=== PATIENT | female | born 1965 | race Caucasian/White ===

== ENCOUNTER 2019-08-17 15:47 | Emergency (ER) | payer MEDICARE ==
[~2019-08-17] VITALS: Ht 165.1 cm; Wt 86.4 kg
[2019-08-17 16:05] VITALS: Ht 165.1 cm; Wt 86.4 kg
[2019-08-17] MEDS ORDERED: NEURONTIN 300300 MG PO (16:06)
[2019-08-17] MEDS ORDERED: UNK BP MED (16:06)
[2019-08-17 16:30] LABS: HEMATOCRIT 32.7 % (36.0-48.0); HEMOGLOBIN 10.9 g/dL (12-16); MCHC 33.3 g/dL (31.0-37.0); MCV 107.9 fL (80.0-100.0); MEAN PLATELET VOLUME 10.2 fL (7.4-10.4); RBC 3.03 10x6/uL (4.00-5.40); RDW 13.6 % (11.5-14.5); WBC 3.1 10x3/uL (4.8-10.8)
[2019-08-17 16:33] LABS: PLATELET COUNT 38 10x3/uL (130-400)
[2019-08-17 16:36] LABS: CALC OSMOLALITY 273 mosm/kg (275-300); CARBON DIOXIDE 25.1 mmol/L (21.0-32.0); CHLORIDE - SERUM 105 mmol/L (98-107); CREATININE - SERUM 0.6 mg/dL (0.6-1.3); GLUCOSE 116 mg/dL (74-106); POTASSIUM - SERUM 3.8 mmol/L (3.5-5.1); SODIUM 138 mmol/L (136-145); UREA NITROGEN 5 mg/dL (7-18); eGFR NON AFRICAN AMERICAN > 90 mL/min (90-120)
[2019-08-17 16:42] LABS: ALBUMIN 2.4 g/dL (3.4-5.0); ALKALINE PHOSPHATASE 332 U/L (46-116); ALT (SGPT) 22 U/L (10-68); BILIRUBIN - TOTAL 1.56 mg/dL (0.2-1.3); PROTEIN - SERUM 8.3 g/dL (6.4-8.2)
[2019-08-17 17:02] LABS: PLATELET ESTIMATE DECREASED
[2019-08-17 17:12] LABS: BASOPHILS 1 % (0-2); EOSINOPHILS 1 % (0-7); LYMPHOCYTES 84 % (15-50); MONOCYTES 3 % (2-11); NEUTROPHILS 11 % (40-80); TARGET CELLS 1+
[2019-08-17 18:12] LABS: UDS - AMPHET NEGATIVE QUAL (NEGATIVE); UDS - BARB NEGATIVE QUAL (NEGATIVE); UDS - BENZO NEGATIVE QUAL (NEGATIVE); UDS - COCAINE NEGATIVE QUAL (NEGATIVE); UDS - OPIATE NEGATIVE QUAL (NEGATIVE); UDS - PCP NEGATIVE QUAL (NEGATIVE); UDS - THC NEGATIVE QUAL (NEGATIVE)
[2019-08-17 18:19] LABS: APPEARANCE CLEAR (CLEAR); BILIRUBIN NEGATIVE (NEGATIVE); COLOR STRAW (YELLOW); GLUCOSE NEGATIVE (NEGATIVE); KETONE NEGATIVE (NEGATIVE); NITRITE NEGATIVE (NEGATIVE); PROTEIN NEGATIVE (NEGATIVE); SPECIFIC GRAVITY 1.005 (1.005-1.020); UROBILINOGEN NORMAL (NORMAL)
[2019-08-17 19:30] VITALS: BP 180/80
== END 2019-08-17 19:30 | disposition home or self-care (01) ==
LOC: D.ER 15:47
PROVIDERS: Emergency Medicine
DX: F10.129 Alcohol abuse with intoxication, unspecified (principal); Y90.8 Blood alcohol level of 240 mg/100 ml or more; K70.30 Alcoholic cirrhosis of liver without ascites; B19.20 Unspecified viral hepatitis C without hepatic coma; D61.818 Other pancytopenia; R74.8 Abnormal levels of other serum enzymes; G62.9 Polyneuropathy, unspecified

== ENCOUNTER 2020-12-28 19:04 | Inpatient (IN) | payer MEDICARE ==
[~2020-12-28] VITALS: Ht 165.1 cm; Wt 95.6 kg
[~2020-12-28 19:04] MED LIST: NEURONTIN 300300 MG PO; UNK BP MED
[2020-12-28 19:58] LABS: HEMATOCRIT 31.5 % (36.0-48.0); HEMOGLOBIN 10.3 g/dL (12-16); LYMPHOCYTE ABS# 3.33 10x3/uL (1.18-3.74); MCH 36.4 pg (26.0-34.0); MCHC 32.7 g/dL (31.0-37.0); MCV 111.3 fL (80.0-100.0); MEAN PLATELET VOLUME 11.6 fL (7.4-10.4); NEUTROPHIL ABS# 0.82 10x3/uL (1.56-6.13); RBC 2.83 10x6/uL (4.00-5.40); WBC 5.5 10x3/uL (4.8-10.8)
[2020-12-28 19:59] LABS: PLATELET COUNT 44 10x3/uL (130-400)
[2020-12-28 20:00] VITALS: BP 122/90; BP 135/79
[2020-12-28 20:16] LABS: CALC OSMOLALITY 277 mosm/kg (275-300); CALCIUM 7.9 mg/dL (8.5-10.1); CARBON DIOXIDE 25.9 mmol/L (21.0-32.0); CHLORIDE - SERUM 107 mmol/L (98-107); CREATININE - SERUM 0.7 mg/dL (0.6-1.3); GLUCOSE 95 mg/dL (74-106); POTASSIUM - SERUM 3.2 mmol/L (3.5-5.1); SODIUM 141 mmol/L (136-145); UREA NITROGEN 5 mg/dL (7-18); eGFR NON AFRICAN AMERICAN > 90 mL/min (90-120)
[2020-12-28 20:22] LABS: ALBUMIN 2.3 g/dL (3.4-5.0); ALKALINE PHOSPHATASE 338 U/L (30-120); ALT (SGPT) 18 U/L (10-68); BILIRUBIN - TOTAL 3.96 mg/dL (0.2-1.3); PROTEIN - SERUM 7.3 g/dL (6.4-8.2)
[2020-12-28 20:24] LABS: BILIRUBIN NEGATIVE (NEGATIVE); KETONE NEGATIVE (NEGATIVE); NITRITE NEGATIVE (NEGATIVE); UROBILINOGEN NORMAL mg/dL (< 2)
[2020-12-28 20:30] LABS: BASOPHILS 3 % (0-2); EOSINOPHILS 12 % (0-7); HYPOCHROMASIA 1+; LYMPHOCYTES 63 % (15-50); MONOCYTES 2 % (2-11); NEUTROPHILS 20 % (40-80); PLATELET ESTIMATE DECREASED
[2020-12-28 20:49] LABS: APTT 41.4 SECONDS (22.8-39.4); INR 1.8 (0.85-1.17); PROTIME 19.4 SECONDS (11.6-15.0)
[2020-12-28 21:00] VITALS: BP 119/76; BP 119/89
[2020-12-28 22:00] VITALS: BP 150/99; BP 155/92
[2020-12-28 23:21] LABS: CKMB 2.2 U/L (0.0-3.6); CREATINE KINASE 179 UL (21-215)
[2020-12-28 23:35] LABS: TROPONIN-I 0.114 ng/mL (0.000-0.060)
[2020-12-29] VITALS (7 sets, daily range): BP systolic 117–171; BP diastolic 51–92; BMI 35.1
--- NOTE | 2020-12-29 01:45 | NUR ---
Platelet transfusion started to RAC 20g at rate of 50ml/hr. Consent and order verified. Second verification performed with Catherine Packer LPN. Will monitor patient for sign of transfusion reaction. See transfusion record flowsheet.
--- NOTE | 2020-12-29 02:05 | NUR ---
Transfusion rate increased to 150 ml/hr. No sign of reaction. See transfusion record flowsheet for details.
--- NOTE | 2020-12-29 03:35 | NUR ---
Transfusion completed at this time. Patient reports sudden onset of chills and headache begining approximately 5min ago. Denies shortness of breath, dizziness, nausea. Headache 9/10 pain. Findings reported to Valdez Dawkins APRN. Ordered to give morphine as ordered prn.
--- NOTE | 2020-12-29 03:45 | NUR ---
Assisted patient on bedpan. Void 350 clear yellow urine.
--- NOTE | 2020-12-29 05:00 | NUR ---
Patient resting comfortably. Denies pain or chills at this time.
--- NOTE | 2020-12-29 05:16 | NUR ---
EKG completed, sinus tachycardia rate 120, left axis deviation. Hardcopy placed in chart.
--- NOTE | 2020-12-29 07:04 | NUR ---
Shift report given to Rosa Maria CLEMENTE at bedside.
[2020-12-29 08:08] LABS: BASOPHILS 0.4 % (0-2); EOSINOPHILS 7.6 % (0-7); HEMATOCRIT 27.1 % (36.0-48.0); HEMOGLOBIN 8.8 g/dL (12-16); LYMPHOCYTES 11.4 % (15-50); MCH 36.1 pg (26.0-34.0); MCHC 32.5 g/dL (31.0-37.0); MCV 111.1 fL (80.0-100.0); MONOCYTES 6.5 % (2-11); NEUTROPHIL ABS# 1.95 10x3/uL (1.56-6.13); NEUTROPHILS 74.1 % (40-80); RBC 2.44 10x6/uL (4.00-5.40); RDW 14.3 % (11.5-14.5)
[2020-12-29 08:14] LABS: APTT 38.7 SECONDS (22.8-39.4); INR 1.95 (0.85-1.17); PROTIME 20.6 SECONDS (11.6-15.0)
[2020-12-29 08:20] LABS: WBC 2.6 10x3/uL (4.8-10.8)
[2020-12-29 08:22] LABS: PLATELET COUNT 30 10x3/uL (130-400)
[2020-12-29 08:23] LABS: ALBUMIN 2.1 g/dL (3.4-5.0); ALKALINE PHOSPHATASE 248 U/L (30-120); ALT (SGPT) 16 U/L (10-68); BILIRUBIN - TOTAL 3.63 mg/dL (0.2-1.3); CALC OSMOLALITY 290 mosm/kg (275-300); CALCIUM 7.7 mg/dL (8.5-10.1); CARBON DIOXIDE 25.3 mmol/L (21.0-32.0); CHLORIDE - SERUM 110 mmol/L (98-107); CKMB 1.4 U/L (0.0-3.6); CREATINE KINASE 134 UL (21-215); CREATININE - SERUM 0.6 mg/dL (0.6-1.3); GLUCOSE 90 mg/dL (74-106); PRO BNP 35 pg/mL (0-125); PROTEIN - SERUM 6.5 g/dL (6.4-8.2); SODIUM 148 mmol/L (136-145); UREA NITROGEN 5 mg/dL (7-18); eGFR NON AFRICAN AMERICAN > 90 mL/min (90-120)
[2020-12-29 08:24] LABS: MAGNESIUM - SERUM 1.1 mg/dL (1.8-2.4)
--- NOTE | 2020-12-29 08:25 | NUR ---
NURSE REPORTS LOW PLATELETS TO FLAVIO SANCHEZ AND PAGES DR DOYLE TO REPORT TO HIM.
[2020-12-29 08:26] LABS: TROPONIN-I 0.116 ng/mL (0.000-0.060)
[2020-12-29 08:27] LABS: POTASSIUM - SERUM 2.7 mmol/L (3.5-5.1)
--- NOTE | 2020-12-29 08:56 | NUR ---
DR DOYLE CALLS BACK AND SAYS HE IS OKAY WITH A 30 PLATELET COUNT AND WILL SEE HER LATER TODAY
[2020-12-29 09:40] LABS: % SATURATION 34 % (15-55); IRON 76 ug/dl (35-150); TOTAL IRON BIND CAPACITY 220 ug/dl (260-445); UNSAT IRON BIND CAPACITY 144 ug/dl (150-375)
[2020-12-29 13:00] LABS: CKMB 1.2 U/L (0.0-3.6); CREATINE KINASE 122 UL (21-215)
[2020-12-29 13:01] LABS: TROPONIN-I 0.122 ng/mL (0.000-0.060)
[2020-12-29] MEDS ORDERED: LISINOPRIL10 MG PO (14:45)
--- NOTE | 2020-12-29 15:19 | NUR ---
RATIONAL FOR SCDS EXPLAINED TO PT. PT STILL REFUSED SCDS.
[2020-12-29 19:15] LABS: CKMB 1.3 U/L (0.0-3.6); CREATINE KINASE 135 UL (21-215)
--- NOTE | 2020-12-29 19:20 | NUR ---
ASSESSMENT COMPLETE, PT A&O. RESPERATIONS EVEN ON RA, IV TO LEFT AC SL. SITE CLEAN AND DRY. PT DENIES PAIN OR NEEDS, BED LOW, CL IN REACH.
[2020-12-29 19:22] LABS: TROPONIN-I 0.126 ng/mL (0.000-0.060)
[2020-12-30] VITALS (18 sets, daily range): BP systolic 90–120; BP diastolic 58–78
--- NOTE | 2020-12-30 00:27 | NUR ---
PRESTRESSED CONCRETE LABORER AT BED SIDE, PT RESTING, NO S/S DISTRESS NOTED.
--- NOTE | 2020-12-30 02:46 | NUR ---
NOTIFIED BY MT THAT PT HAD AND ELEVATED T WAVE AND HEART RATE WAS ELEVATED TO 142, THIS NURSE ENTERED ROOM, PT WAS COMING OUT OF THE BR. PT WAS UNSTEADY ON HER FEET. ASSISTED PT BACK TO BED, PT ALSO SLURRING HER SPEECH AND HAS RIGHT SIDE FACIAL DROOPING. CALLED SERVICE BAR CASHIER AND CHARGE NURSE TO ROOM TO ASSIST, RAPID RESPONSE CALLED.
--- NOTE | 2020-12-30 03:23 | NUR ---
RESTING WITH EYES CLOSED, NO S/S DISTRESS NOTED.
--- NOTE | 2020-12-30 03:46 | NUR ---
NOTIFIED BY MT THAT PT HAD AND ELEVATED T WAVE AND HEART RATE WAS ELEVATED TO 142, THIS NURSE ENTERED ROOM, PT WAS COMING OUT OF THE BR. PT WAS UNSTEADY ON HER FEET. ASSISTED PT BACK TO BED, PT ALSO SLURRING HER SPEECH AND HAS RIGHT SIDE FACIAL DROOPING. CALLED DATA CAPTURE CLERK AND CHARGE NURSE TO ROOM TO ASSIST, RAPID RESPONSE CALLED.
--- NOTE | 2020-12-30 04:02 | NUR ---
GONE TO CT VIA BED.
[2020-12-30 04:11] LABS: BASOPHILS 0.5 % (0-2); EOSINOPHILS 6.8 % (0-7); IMMATURE GRANULOCYTES 0.3 % (0-5); LYMPHOCYTE ABS# 1.41 10x3/uL (1.18-3.74); MCH 36.3 pg (26.0-34.0); MCHC 32.4 g/dL (31.0-37.0); MCV 111.9 fL (80.0-100.0); MEAN PLATELET VOLUME 12.4 fL (7.4-10.4); MONOCYTES 12.9 % (2-11); NEUTROPHIL ABS# 1.62 10x3/uL (1.56-6.13); NEUTROPHILS 42.5 % (40-80); RDW 14.3 % (11.5-14.5)
[2020-12-30 04:12] LABS: HEMOGLOBIN 10.7 g/dL (12-16); RBC 2.95 10x6/uL (4.00-5.40); WBC 3.8 10x3/uL (4.8-10.8)
[2020-12-30 04:13] LABS: PLATELET COUNT 49 10x3/uL (130-400)
--- NOTE | 2020-12-30 04:20 | NUR ---
GONE TO ER VIA BED. ER NURSES AT BED SIDE TO ASSESS PT.
[2020-12-30 04:21] LABS: MAGNESIUM - SERUM 1.1 mg/dL (1.8-2.4); PHOSPHOROUS 3.4 mg/dL (2.5-4.9)
--- NOTE | 2020-12-30 04:42 | NUR ---
PTS HR BETWEEN 160 AND UP TO 200, PT IN SVT, ADENOSIN 12 MG GIVEN IVP BY ER NURSE.
--- NOTE | 2020-12-30 04:50 | NUR ---
PT HR STILL ELEVATED AT 180, A SECOND DOSE OF ADENOSIN 12 MG GIVEN IVP BY ER NURSE.
--- NOTE | 2020-12-30 05:00 | NUR ---
PT HR STILL ELEVATED, 150-170, ER PHYSICIAN AT BED SIDE ORDERS GIVEN AND CARRIED OUT BY ER NURSES, CARDIZEM 10 MG IVP GIVEN, ATIVAN 1 MG GIVEN FOR TREMORS OR SEIZURE ACT ACTIVITY, STARTED ON CARDIZEM DRIP AT 10 CC/HR.
--- NOTE | 2020-12-30 05:28 | NUR ---
NOTIFIED ZORAN ALEJO APN OF PTS CHANGE IN CONDITION.
--- NOTE | 2020-12-30 08:23 | NUR ---
CONSULT CALLED TO CARDIOLOGY AND ORDERS GIVEN.
--- NOTE | 2020-12-30 08:45 | NUR ---
CONSULT CALLED TO DR. PITTS AND ORDERS NOTED.
[2020-12-30 10:12] LABS: HEPATITIS C ANTIBODY >11.0 S/CO RAT (0.0-0.9)
--- NOTE | 2020-12-30 11:07 | NUR ---
PATIENT ABLE TO GO TO MRI WILL TURN CARDIZEM OFF FOR THAT PERIOD OF TIME PER IVAN JIMENEZ APN FOR CARDIOLOGY AND WILL GIVE LOPRESSOR IVP FOR THIS. DR. MENDEZ IN AND SAID DO NO GIVE PLATELETS.
--- NOTE | 2020-12-30 19:00 | NUR ---
BEDSIDE REPORT COMPLETED WITH OFF GOING RN. PT IS LAYING IN BED WITH EYES CLOSED AT THIS TIME. SHIFT ASSESSMENT COMPLETED. NO S/S OF DISTRESS. PT DENIES NEEDS AT THIS TIME. WILL CONTINUE TO MONITOR.
[2020-12-31] VITALS (16 sets, daily range): BP systolic 93–143; BP diastolic 61–89; Ht 165.1 cm; Wt 95.6 kg
[2020-12-31 04:44] LABS: BASOPHILS 0.3 % (0-2); EOSINOPHILS 1.5 % (0-7); HEMATOCRIT 31.1 % (36.0-48.0); HEMOGLOBIN 9.8 g/dL (12-16); IMMATURE GRANULOCYTES 0.3 % (0-5); LYMPHOCYTE ABS# 1.11 10x3/uL (1.18-3.74); LYMPHOCYTES 28.2 % (15-50); MCH 35.8 pg (26.0-34.0); MCHC 31.5 g/dL (31.0-37.0); MCV 113.5 fL (80.0-100.0); MEAN PLATELET VOLUME 12.1 fL (7.4-10.4); MONOCYTES 21.6 % (2-11); NEUTROPHIL ABS# 1.89 10x3/uL (1.56-6.13); NEUTROPHILS 48.1 % (40-80); PLATELET COUNT 50 10x3/uL (130-400); RBC 2.74 10x6/uL (4.00-5.40); RDW 14.7 % (11.5-14.5); WBC 3.9 10x3/uL (4.8-10.8)
[2020-12-31 04:46] LABS: PLATELET ESTIMATE DECREASED
[2020-12-31 05:03] LABS: MAGNESIUM - SERUM 1.2 mg/dL (1.8-2.4)
[2020-12-31 05:19] LABS: PHOSPHOROUS 2.1 mg/dL (2.5-4.9)
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
[2020-12-31 09:55] LABS: ALBUMIN 2.3 g/dL (3.4-5.0); ALKALINE PHOSPHATASE 184 U/L (30-120); ALT (SGPT) 17 U/L (10-68); BILIRUBIN - TOTAL 5.07 mg/dL (0.2-1.3); CALC OSMOLALITY 280 mosm/kg (275-300); CARBON DIOXIDE 24.4 mmol/L (21.0-32.0); CHLORIDE - SERUM 105 mmol/L (98-107); CREATININE - SERUM 0.8 mg/dL (0.6-1.3); GLUCOSE 110 mg/dL (74-106); POTASSIUM - SERUM 3.1 mmol/L (3.5-5.1); PROTEIN - SERUM 7.1 g/dL (6.4-8.2); SODIUM 141 mmol/L (136-145); UREA NITROGEN 11 mg/dL (7-18); eGFR NON AFRICAN AMERICAN 79 mL/min (90-120)
--- NOTE | 2020-12-31 14:11 | NUR ---
ROSA W/ MARY HERE TO TALK TO MR. MOELLER REGARDING POA STATUS FOR PT.
--- NOTE | 2020-12-31 14:41 | NUR ---
REPORT RECEIVED FROM RAPHAEL IN CCL.
--- NOTE | 2020-12-31 14:51 | EC ---
PATIENT:KAYLA ONTIVEROS DATE OF SERVICE: 12/28/20 SEX: F MEDICAL RECORD: [id number] DATE OF : 65 LOCATION:[facility] AGE OF PATIENT: 55 ADMISSION DATE: 12/28/20 REFERRING PHYSICIAN: INTERPRETING PHYSICIAN: JAYLEN VICTORIA MD ECHOCARDIOGRAM REPORT ECHO CHARGES 4 ECHO COMPLETE Date: 12/30/20 CLINICAL DIAGNOSIS: TIA VS CVA ECHOCARDIOGRAPHIC MEASUREMENTS (adult normal given) AC root (d.<3.7cm) 2.4 cm LV Septum d (<1.2 cm> 1.7 cm Valve Excursion 1.5 cm LV Septum (systole) 1.8 cm Left Atria (s.<4.0cm> 3.8 cm LVPW d(<1.2cm) 0.5 cm RV (d.<2.3cm) 4.2 cm LVPW (sytole) 1.0 cm LV diastole(<5.6CM) 3.8 cm MV E-F(>70mm/sec) cm LV systole 2.7 cm LVOT Diameter 1.6 cm MV exc.(>10mm) 1.4 cm Est.ejection fraction (50-75%) % DOPPLER: LVIT cm/sec A 27 cm/sec E 64 cm/sec LA cm/sec RVSP 53 mmHg LVOT 91 cm/sec AOP1/2T m/s Asc. Ao 235 cm/sec RVOT 62 cm/sec RA cm/sec PA 80 cm/sec AV Gradient Peak 22.2 mmHg AV Mean 14.9 mmHg AV Area 0.6 cm MV Gradient Peak 4.4 mmHg MV Mean 2.3 mmHg MV Area cm COMMENTS: Instrumentation Engineer: Amandeep GUTIERREZ Non Clinical Advisor: 5 Dr. Victoria TAPE# Pericardial Effusion N DATE OF SERVICE: CLINICAL DIAGNOSIS: TIA. INTERPRETATION: Normal left ventricular chamber size and contractile function with ejection fraction of 55%. Right ventricle, contrast bubble study negative for evidence of intraatrial communication. FINDINGS: Left atrial chamber appears normal. Right atrial chamber is dilated. Right ventricular chamber is dilated with reduced systolic contractile ECHOCARDIOGRAM REPORT [id number] KAYLA ONTIVEROS function. Mild thickening and calcification of the aortic valve with good cusp excursion. Trivial aortic regurgitation. Aortic sclerosis. No stenosis. Mitral valve appears normal. No mitral regurgitation. Tricuspid valve appears normal. Moderate to severe tricuspid regurgitation. Tricuspid velocity 3.2 meters per second. Estimated PA pressures of 52 mmHg consistent with moderate pulmonary hypertension. Pulmonic valve not well visualized. No pulmonary insufficiency. No pericardial effusion visualized. IMPRESSION: 1. Normal left ventricular chamber size and contractile function with an ejection fraction of 55%. 2. Right atrial and right ventricular chamber dilatation. Reduced RV contractile systolic dysfunction. 3. Moderate to severe tricuspid regurgitation. Estimated PA pressure of 52 mmHg consistent with moderate pulmonary hypertension. 4. Contrast bubble study negative for evidence for interatrial communication. TRANSINT:[id number] Voice Confirmation ID: [id number] DOCUMENT ID: [id number] JAYLEN VICTORIA MD at 1451 CC: [id number] DICTATION DATE: 12/30/20 1500 STRIKER OFF: 12/30/20 1655 [facility] [address] [place] [address]
--- NOTE | 2020-12-31 14:56 | MORECARE ---
CASE MANAGEMENT DISCHARGE SUMMARY PATIENT: KAYLA ONTIVEROS UNIT: [id number] ADM DATE: 12/28/20 AGE: 55 : 65 SEX: F ROOM/BED: [facility] AUTHOR: CARLOS,DOC PHYSICIAN: REFERRING PHYSICIAN: CRISTHIAN OZUNA MD DATE OF SERVICE: 12/31/20 Case Management Discharge Planning Summary DCP REVIEW SUMMARY ANTICIPATED D/C DATE: EXPECTED LOS : CASE STATUS: DCP Initiated INITIAL REVIEW: 12/31/2020 INITIAL REVIEWER: Lesvia Scherer FINAL DISCHARGE DISPOSITION: : FINAL REVIEWER: FINAL REVIEW DATE: DCP Focus Questions & Answers QUESTION: ANSWER : PATIENT: KAYLA ONTIVEROS ENCOUNTER: [id number] MEDICAL RECORD#: [id number] ADMISSION DATE: 12/28/2020 DISCHARGE DATE: ATTENDING MD: CRISTHIAN CELESTIN : AGE: 55 MARITAL STATUS: S DC PLAN ID: [id number] FACILITY: [facility] PRINTED ON: 12/31/20 14:56 CT All edits/amendments must be made on the electronic document DICTATION DATE: 12/31/201455 STATISTICAL METHODS TEACHER: DM 12/31/20 145 RPT#: [id number] DC DATE: STATUS: ADM IN [facility] [address] [place] [address] END OF REPORT
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
--- NOTE | 2020-12-31 15:54 | NUR ---
ARRIVES TO UNIT PER WC FROM ICU, VITALS TAKEN, LFA SL, VISITOR PRESENT
--- NOTE | 2021-01-01 00:52 | NUR ---
PT RESTING IN BED WATCHING TV. NO COMPLAINTS OF PAIN NOR DISCOMFORT NOTED AT THIS TIME. PT IS CONFUSED. BED IN LOW POSITION WITH CALL LIGHT IN REACH.
[2021-01-01 04:00] VITALS: BP 140/79
[2021-01-01 06:27] LABS: ALBUMIN 2.4 g/dL (3.4-5.0); ALKALINE PHOSPHATASE 191 U/L (30-120); ALT (SGPT) 17 U/L (10-68); BILIRUBIN - TOTAL 5.23 mg/dL (0.2-1.3); CALC OSMOLALITY 271 mosm/kg (275-300); CALCIUM 8.2 mg/dL (8.5-10.1); CARBON DIOXIDE 24.1 mmol/L (21.0-32.0); CHLORIDE - SERUM 103 mmol/L (98-107); CREATININE - SERUM 0.7 mg/dL (0.6-1.3); GLUCOSE 91 mg/dL (74-106); MAGNESIUM - SERUM 1.1 mg/dL (1.8-2.4); PHOSPHOROUS 1.8 mg/dL (2.5-4.9); POTASSIUM - SERUM 3.1 mmol/L (3.5-5.1); PROTEIN - SERUM 7.3 g/dL (6.4-8.2); SODIUM 137 mmol/L (136-145); UREA NITROGEN 8 mg/dL (7-18); eGFR NON AFRICAN AMERICAN > 90 mL/min (90-120)
[2021-01-01 06:35] LABS: HEMATOCRIT 31.4 % (36.0-48.0); HEMOGLOBIN 10.1 g/dL (12-16); LYMPHOCYTE ABS# 1.39 10x3/uL (1.18-3.74); MCH 36.1 pg (26.0-34.0); MCHC 32.2 g/dL (31.0-37.0); MCV 112.1 fL (80.0-100.0); MEAN PLATELET VOLUME 12.3 fL (7.4-10.4); NEUTROPHIL ABS# 1.83 10x3/uL (1.56-6.13); PLATELET COUNT 59 10x3/uL (130-400); RDW 14.9 % (11.5-14.5); WBC 4.4 10x3/uL (4.8-10.8)
--- NOTE | 2021-01-01 07:00 | NUR ---
RECEIVED BEDSIDE REPORT ON PATIENT AND ASSUMED CARE. PATIENT AWAKE AND ALERT, CONFUSED TO TIME (STATES 2020) REORIENTED TO CORRECT YEAR, IV 20 GA TO LEFT FA NSL WITH SWAB CAP IN PLACE. BBS - CLEAR AND EQUAL ON RA. HEAD TO TOE ASSESSMENT COMPLETED.
[2021-01-01 07:07] LABS: ANISOCYTOSIS OCC; EOSINOPHILS 4 % (0-7); LYMPHOCYTES 25 % (15-50); MONOCYTES 3 % (2-11); NEUTROPHILS 66 % (40-80); PLATELET ESTIMATE DECREASED; SCHISTOCYTES OCC
--- NOTE | 2021-01-01 07:44 | NUR ---
ELECTROLYTE REPLACEMENT PER PROTOCOL.
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
--- NOTE | 2021-01-01 08:43 | NUR ---
PER Jovani SOLARES APRN PATIENT GIVEN ADDITIONAL DOSE OF POTASSIUM PER ORDER. MORNING MEDS PER NOV. PATIENT SITTING UP EATING BREAKFAST, NO NEEDS AT THIS TIME.
[2021-01-01 08:48] VITALS: BP 133/77
--- NOTE | 2021-01-01 09:38 | NUR ---
PATINET UP TO BATHROOM FOR BM.
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
[2021-01-01 12:46] VITALS: BP 144/83; BP 170/71
--- NOTE | 2021-01-01 13:43 | NUR ---
PATIENT SITTING UP IN BEDSIDE CHAIR, ASSISTED TO BATHROOM.
--- NOTE | 2021-01-01 14:59 | NUR ---
PATIENT UP WALKING HALLWAY WITH .
--- NOTE | 2021-01-01 15:15 | NUR ---
PATIENT SITTING UP IN BEDSIDE CHAIR, WANTING TO LEAVE TO SMOKE. STATES SMOKES 1-2 CIGARETTES PER DAY. 7 MG NICOTINE PATCH ORDERED AND PLACED ON RIGHT UPPER ARM.
--- NOTE | 2021-01-01 15:56 | NUR ---
PATIENT UP TO BATHROOM, SIGNIFICANT OTHER IN ROOM.
[2021-01-01 17:11] VITALS: BP 148/73
--- NOTE | 2021-01-01 17:28 | NUR ---
PATIENT UP OUT OF BED, NOT USING CALL LIGHT, REDIRECTED BACK TO BED. ALARMS ON.
[2021-01-01 20:23] VITALS: BP 139/83
[2021-01-02] VITALS (7 sets, daily range): BP systolic 126–169; BP diastolic 63–96
--- NOTE | 2021-01-02 02:02 | NUR ---
PT HAS BEEN WALKING AROUND ROOM THROUGHOUT THE NIGHT. PT IS VERY CONFUSED. PT THINKS THAT SOMEONE IS IN THE ROOM WITH HER. ABLE TO MAKE WANTS AND NEEDS KNOWN. PT CURRENTLY SITTING IN CHAIR WITH ALARM (ONE ALSO IN THE BED) IN PLACE. CALL MORFIN LIGHT IN REACH.
[2021-01-02 05:42] LABS: BASOPHILS 0.5 % (0-2); EOSINOPHILS 5.6 % (0-7); HEMATOCRIT 30.7 % (36.0-48.0); HEMOGLOBIN 9.9 g/dL (12-16); IMMATURE GRANULOCYTES 0.5 % (0-5); LYMPHOCYTE ABS# 1.38 10x3/uL (1.18-3.74); LYMPHOCYTES 34.8 % (15-50); MCH 35.6 pg (26.0-34.0); MCHC 32.2 g/dL (31.0-37.0); MCV 110.4 fL (80.0-100.0); MEAN PLATELET VOLUME 11.5 fL (7.4-10.4); MONOCYTES 17.7 % (2-11); NEUTROPHIL ABS# 1.62 10x3/uL (1.56-6.13); NEUTROPHILS 40.9 % (40-80); PLATELET COUNT 53 10x3/uL (130-400); RBC 2.78 10x6/uL (4.00-5.40); RDW 15.1 % (11.5-14.5)
[2021-01-02 05:49] LABS: PLATELET ESTIMATE DECREASED
[2021-01-02 05:54] LABS: ALBUMIN 2.3 g/dL (3.4-5.0); ALKALINE PHOSPHATASE 195 U/L (30-120); ALT (SGPT) 18 U/L (10-68); BILIRUBIN - TOTAL 5.19 mg/dL (0.2-1.3); CALC OSMOLALITY 271 mosm/kg (275-300); CALCIUM 8.5 mg/dL (8.5-10.1); CARBON DIOXIDE 23.3 mmol/L (21.0-32.0); CHLORIDE - SERUM 105 mmol/L (98-107); CREATININE - SERUM 0.7 mg/dL (0.6-1.3); GLUCOSE 103 mg/dL (74-106); MAGNESIUM - SERUM 1.4 mg/dL (1.8-2.4); PHOSPHOROUS 2.1 mg/dL (2.5-4.9); POTASSIUM - SERUM 3.7 mmol/L (3.5-5.1); SODIUM 137 mmol/L (136-145); UREA NITROGEN 8 mg/dL (7-18); eGFR NON AFRICAN AMERICAN > 90 mL/min (90-120)
[2021-01-02 09:26] LABS: INR 1.96 (0.85-1.17); PROTIME 20.7 SECONDS (11.6-15.0)
--- NOTE | 2021-01-02 09:34 | NUR ---
FOUND OOB, BED ALARM ON. SHE REPORTS SHE IS UP BECAUSE SHE IS GETTING DRESSED TO GO HOME AND SAYS THE DISCHARGED HER. REORIENTED HER TO SITUATION. BACK TO BED SAFELY. REINFORCED TO CALL FOR ASSISTANCE. FALL ALARM ON. CALL LIGHT W/IN REACH.
--- NOTE | 2021-01-02 14:28 | NUR ---
PATIENT IS GOING INTO AN ENCLOSURE BED SECONDARY TO HER CONFUSION. AT THIS TIME SHE DOES NOT APPEAR TO BE STABLE ENOUGH TO FOLLOW INSTRUCTION AND PARTICIPATE IN 3 HOURS OF THERAPY. WE WILL CONTINUE TO FOLLOW HER. THANK YOU FOR THIS REFERRAL. EVARISTO MATHIAS RN CLINICAL LIAISON, INPATIENT REHAB.
--- NOTE | 2021-01-02 14:42 | NUR ---
CONSTANTLY GETTING UP OUT OF CHAIR, INSISTING SHE HAS TO GO TO COURT TOMORROW. CANNOT BE REORIENTED AND CANNOT FOLLOW DIRECTIONS. DR. MENDEZ CAME BY AT THAT TIME AND ORDERED MAIKOL BED FOR SAFETY AND TO PREVENT ELOPEMENT.
--- NOTE | 2021-01-02 14:43 | NUR ---
ATTEMPTED TO CALL MR. MOELLER TO INFORM HIM OF HER BEING PLACED IN MAIKOL BED, BUT NUMBER DISCONNECTED.
--- NOTE | 2021-01-02 22:41 | NUR ---
PT IS RESTING IN MAIKOL BED. PT HAS BEEN RELEASED TO USE THE RESTROOM. NO COMPLAINTS OF PAIN NOR DISCOMFORT NOTED. PT IS STILL CONFUSED. ABLE TO MAKE WANTS AND NEEDS KNOWN TO STAFF. BED IN LOWEST POSITION WITH CALL LIGHT IN REACH.
[2021-01-03 01:19] VITALS: BP 138/84
[2021-01-03 04:00] VITALS: BP 140/72
[2021-01-03 05:08] LABS: BASOPHILS 0.6 % (0-2); EOSINOPHILS 5.1 % (0-7); HEMATOCRIT 33.2 % (36.0-48.0); HEMOGLOBIN 10.4 g/dL (12-16); LYMPHOCYTE ABS# 1.21 10x3/uL (1.18-3.74); LYMPHOCYTES 34.2 % (15-50); MCH 35.3 pg (26.0-34.0); MCHC 31.3 g/dL (31.0-37.0); MEAN PLATELET VOLUME 11.9 fL (7.4-10.4); MONOCYTES 16.7 % (2-11); NEUTROPHIL ABS# 1.54 10x3/uL (1.56-6.13); NEUTROPHILS 43.4 % (40-80); PLATELET COUNT 61 10x3/uL (130-400); RBC 2.95 10x6/uL (4.00-5.40); RDW 15.3 % (11.5-14.5); WBC 3.5 10x3/uL (4.8-10.8)
[2021-01-03 05:11] LABS: MCV 112.5 fL (80.0-100.0)
[2021-01-03 06:00] LABS: ALBUMIN 2.5 g/dL (3.4-5.0); ALKALINE PHOSPHATASE 220 U/L (30-120); BILIRUBIN - TOTAL 5.84 mg/dL (0.2-1.3); CALC OSMOLALITY 276 mosm/kg (275-300); CALCIUM 8.6 mg/dL (8.5-10.1); CARBON DIOXIDE 22.5 mmol/L (21.0-32.0); CHLORIDE - SERUM 106 mmol/L (98-107); CREATININE - SERUM 0.7 mg/dL (0.6-1.3); GLUCOSE 96 mg/dL (74-106); MAGNESIUM - SERUM 1.5 mg/dL (1.8-2.4); PROTEIN - SERUM 7.5 g/dL (6.4-8.2); SODIUM 139 mmol/L (136-145); UREA NITROGEN 9 mg/dL (7-18); eGFR NON AFRICAN AMERICAN > 90 mL/min (90-120)
[2021-01-03 06:18] LABS: ALT (SGPT) 27 U/L (10-68); PHOSPHOROUS 3.6 mg/dL (2.5-4.9); POTASSIUM - SERUM 3.1 mmol/L (3.5-5.1)
--- NOTE | 2021-01-03 08:00 | NUR ---
ALERT AND ORIENTED TO NAME ONLY BED OPENED FOR BREAKFAST BUT REFUSED TO EAT. GOOD ROM OF EXT. AND DENIES ANY PAIN OR DISCOMFORT WITH CALL LIGHT IN REACH.
[2021-01-03 08:16] VITALS: BP 162/83
--- NOTE | 2021-01-03 10:00 | NUR ---
AMBULATING WITH PHYSICAL THERAPY WITH R/WALKER WITH SEADY GAIT. NO CHANGE IN COGNITION NOTED.
[2021-01-03 12:01] VITALS: BP 150/99
--- NOTE | 2021-01-03 14:00 | NUR ---
FAMILY FRIEND HERE WITH MAIKOL BED OPENED AND AMBULATING WITH R/WALKER IN HALLWAY W/O ANY CHANGE IN COGNITION.
--- NOTE | 2021-01-03 16:00 | NUR ---
NO CHANGE IN CONDITION. RESTING WITH EYES CLOSED WITH RESP EVEN AND UNLABORED.
[2021-01-03 16:33] VITALS: BP 148/83
--- NOTE | 2021-01-03 16:52 | NUR ---
MAIKOL BED OPEN FOR LUNCH AND CONTINUES TO STATE SHE IS NOT HUNGRY. WATER CONSUMED WITH 50% MEAL CONSUMED.
--- NOTE | 2021-01-03 19:06 | NUR ---
PATIENT RESTING IN BED WITH NO S/S OF DISTRESS. MAIKOL BED IN USE. PATIENT IS CONFUSED AND DENIES NEEDS AT THIS TIME. BED IN LOWEST POSITION, CALL LIGHT IN REACH. ENCOURAGED PATIENT TO CALL WITH NEEDS.
--- NOTE | 2021-01-03 20:02 | NUR ---
ADMINISTERED MEDS PER ORDERS. PATIENT SCOTT WELL. ENCOURAGED TO CALL WITH NEEDS.
[2021-01-03 20:21] VITALS: BP 156/75
[2021-01-04 04:30] VITALS: BP 151/90
[2021-01-04 05:56] LABS: BASOPHILS 0.9 % (0-2); EOSINOPHILS 8.5 % (0-7); HEMATOCRIT 31.7 % (36.0-48.0); HEMOGLOBIN 10.2 g/dL (12-16); LYMPHOCYTE ABS# 1.01 10x3/uL (1.18-3.74); MCH 35.8 pg (26.0-34.0); MCHC 32.2 g/dL (31.0-37.0); MCV 111.2 fL (80.0-100.0); MEAN PLATELET VOLUME 12.4 fL (7.4-10.4); MONOCYTES 22.8 % (2-11); NEUTROPHIL ABS# 1.13 10x3/uL (1.56-6.13); NEUTROPHILS 35.8 % (40-80); PLATELET COUNT 63 10x3/uL (130-400); RBC 2.85 10x6/uL (4.00-5.40); RDW 15.3 % (11.5-14.5); WBC 3.2 10x3/uL (4.8-10.8)
[2021-01-04 05:59] LABS: ALBUMIN 2.3 g/dL (3.4-5.0); ALKALINE PHOSPHATASE 176 U/L (30-120); ALT (SGPT) 27 U/L (10-68); BILIRUBIN - TOTAL 5.66 mg/dL (0.2-1.3); CALC OSMOLALITY 280 mosm/kg (275-300); CALCIUM 8.3 mg/dL (8.5-10.1); CARBON DIOXIDE 21.7 mmol/L (21.0-32.0); CHLORIDE - SERUM 108 mmol/L (98-107); CREATININE - SERUM 0.6 mg/dL (0.6-1.3); GLUCOSE 91 mg/dL (74-106); POTASSIUM - SERUM 3.2 mmol/L (3.5-5.1); SODIUM 142 mmol/L (136-145); UREA NITROGEN 8 mg/dL (7-18); eGFR NON AFRICAN AMERICAN > 90 mL/min (90-120)
--- NOTE | 2021-01-04 08:00 | NUR ---
ALERT AND ORIENTED TO SELF WITH HALLUCINATIONS NOTED. GOOD ROM OF EXT. X4. MAIKOL BED OPEN WITH SET UP ASSIST WITH MEALS BUT REFUSES BREAKFAST THIS AM. STATING SHE WASN'T HUNGRY. SBA TO BATHROOM WITH STEADY GAIT.
[2021-01-04 08:20] LABS: INR 2.21 (0.85-1.17); PROTIME 22.8 SECONDS (11.6-15.0)
[2021-01-04 09:34] VITALS: BP 147/97
--- NOTE | 2021-01-04 10:00 | NUR ---
GOOD ROM OF EXT. X4 WITH SBA TO BATHROOM. RESP EVEN AND UNLABORED W/O DYSPNEA.
--- NOTE | 2021-01-04 12:00 | NUR ---
AMBULATING WITH THERAPY WITH CANE WITH SBA. INCREASED STRENGTH AND STABLILITY NOTED. NO CHANGE NOTED IN COGNITION. SET UP ASSSITED WITH MEAL AND CONSUMED 75%. WITH MAIKOL BED OPENWHILE EATING.
[2021-01-04 13:37] VITALS: BP 156/87
--- NOTE | 2021-01-04 14:00 | NUR ---
HERE WITH MAIKOL BED OPEN AT THIS TIME. INSTRUCTED TO NOTIFY PRIOR TO LEAVING AND VERBLAIZED UNDERSTANDING.
--- NOTE | 2021-01-04 16:00 | NUR ---
HERE AT BEDSIDE WITH MAIKOL BED OPEN. NO FLIGHT ATTEMPT AT THIS TIME. PLEASANT AND COOPERATIVE WITH REQUESTS. UP WITH SBA TO BATHROOM.
[2021-01-04 17:41] VITALS: BP 138/72
--- NOTE | 2021-01-04 18:00 | NUR ---
MAIKOL BED OPEN WITH PATIENT REQUIRES SET UP ASSSIT ONLY FOR MEALS. ASSISTED BACK TO MAIKOL POST MEALS AND BATHROOM. STABLE AT THIS TIME AND COOPERATIVE.
--- NOTE | 2021-01-04 19:00 | NUR ---
BEDSIDE REPORT RECEIVED AND CARE OF PT ASSUMED. PT LYING IN LOW ZUÑIGA'S POSITION IN A MAIKOL ENCLOSURE BED WITH EYES CLOSED AND EASY RESPIRATIONS. IV TO LEFT HAND SALINE LOCKED. WILL MONITOR FOR NEEDS.
[2021-01-04 20:00] VITALS: BP 133/77
--- NOTE | 2021-01-04 20:42 | NUR ---
HS MEDICATIONS GIVEN. ASSISTED PT UP TO RESTROOM TO VOID AND OFFERED ICE WATER AND [place]. ALLOWED PT TO SIT UP ON SIDE OF BED FOR 20 MINUTES. POSITIONED BACK IN BED FOR COMFORT AND SECURED MAIKOL ENCLOSURE BED.
[2021-01-05] VITALS: BP 131/72
[2021-01-05 04:00] VITALS: BP 140/77
[2021-01-05 05:55] LABS: BASOPHILS 0.6 % (0-2); EOSINOPHILS 9.6 % (0-7); HEMATOCRIT 32.7 % (36.0-48.0); HEMOGLOBIN 10.3 g/dL (12-16); LYMPHOCYTE ABS# 1.04 10x3/uL (1.18-3.74); LYMPHOCYTES 32.2 % (15-50); MCH 35.6 pg (26.0-34.0); MCHC 31.5 g/dL (31.0-37.0); MCV 113.1 fL (80.0-100.0); MEAN PLATELET VOLUME 12.6 fL (7.4-10.4); MONOCYTES 23.5 % (2-11); NEUTROPHILS 34.1 % (40-80); PLATELET COUNT 63 10x3/uL (130-400); RBC 2.89 10x6/uL (4.00-5.40); RDW 15.6 % (11.5-14.5); WBC 3.2 10x3/uL (4.8-10.8)
[2021-01-05 05:57] LABS: PLATELET ESTIMATE DECREASED
[2021-01-05 06:05] LABS: INR 2.14 (0.85-1.17); PROTIME 22.2 SECONDS (11.6-15.0)
[2021-01-05 06:30] LABS: ALBUMIN 2.2 g/dL (3.4-5.0); ALKALINE PHOSPHATASE 229 U/L (30-120); ALT (SGPT) 26 U/L (10-68); BILIRUBIN - TOTAL 4.55 mg/dL (0.2-1.3); CALC OSMOLALITY 280 mosm/kg (275-300); CALCIUM 8.4 mg/dL (8.5-10.1); CARBON DIOXIDE 22.7 mmol/L (21.0-32.0); CHLORIDE - SERUM 110 mmol/L (98-107); CREATININE - SERUM 0.6 mg/dL (0.6-1.3); GLUCOSE 95 mg/dL (74-106); POTASSIUM - SERUM 3.2 mmol/L (3.5-5.1); PROTEIN - SERUM 6.7 g/dL (6.4-8.2); SODIUM 142 mmol/L (136-145); UREA NITROGEN 8 mg/dL (7-18); eGFR NON AFRICAN AMERICAN > 90 mL/min (90-120)
--- NOTE | 2021-01-05 08:00 | NUR ---
MAIKOL BED OPEN WITH PATIENT REQUIRING SET UP ASSSIT ONLY. PLEASANT AND COOPERATIVE AT THIS TIME. GOOD ROM OF EXT. AND ASSSITED TO BATHROOM WITH SBA.
[2021-01-05 08:20] VITALS: BP 127/65
--- NOTE | 2021-01-05 10:00 | NUR ---
PT AMBULATING IN HALLWAY WITH SBA WITH THERAPY. S/L TO LEFT HAND WITH GOOD ROM OF EXT X4. COOPERATIVE WITH CONTINUED CONFUSION WITH FREQUENT REDIRECTING.
--- NOTE | 2021-01-05 10:20 | NUR ---
Nutrition follow-up: Pt in mara bed with nurse at this time. Diet order: Regular PO intake ~50% of meals, snacks Labs reviewed Wt: 210# PO intake continues to be < 75% of meals Will coitnue to provide food choices and honor food preferences. Reassessment: 01/08/21
--- NOTE | 2021-01-05 12:00 | NUR ---
MAIKOL BED OPEN AND EATING LUNCH WITH SET UP ASSSIT. ASSISTED TO BATHROOM WITH SBA POST EATING. NO DYSPHASIA NOTED.
[2021-01-05 13:21] VITALS: BP 145/78
--- NOTE | 2021-01-05 14:00 | NUR ---
MAIKOL BED OPEN FOR MEDICATION ADMINISTRATION AND TOLERATED WELL. GOOD ROM OF EXT X4 AND COOPERATIVE WITH REQUESTS.
--- NOTE | 2021-01-05 15:32 | NUR ---
OT NOTE; PT COMPLETED SUPINE TO SIT WITH SPV. PT COMPLETED ADL MOB TO TOILET WITH SPV. PT COMPLETED TOILETING TASKS WITH SPV. PT COMPLETED ORAL CARE AT SINK WITH SPV. PT COMPLETED HAND HYGIENE AT SINK SPV. PT BACK IN MAIKOL BED...SECURED MAIKOL BED. [phone] THANK YOU,JENNI ROBERSON
--- NOTE | 2021-01-05 16:15 | NUR ---
MAIKOL BED OPEN FOR VISIT WITH . INSTRUCTED TO NOTIFY PRIOR TO LEAVING. ASSSITED PATIENT TO BATHROOM WITH SBA. NO CHANGE IN COGNITION.
[2021-01-05 17:14] VITALS: BP 136/75
--- NOTE | 2021-01-05 18:09 | NUR ---
MAIKOL BED OPEN WITH PATIENT EATING DINNER WITH AT BEDSIDE. REQUIRES SET UP ASSSIT ONLY. INSTRUCTED TO NOTIFY STAFF PRIOR TO LEAVING TO SECURE PATINET SAFETY IN BED WITH VERBALIZEING UNDERSTANDING.
--- NOTE | 2021-01-05 19:00 | NUR ---
BEDSIDE REPORT RECEIVED AND CARE OF PT ASSUMED. PT LYING IN LOW ZUÑIGA'S POSITION VISITING WITH SPOUSE. IV TO LEFT HAND SALINE LOCKED. WILL MONITOR FOR NEEDS. MAIKOL ENCLOSURE BED IN USE FOR SAFETY.
[2021-01-05 20:00] VITALS: BP 133/80
--- NOTE | 2021-01-05 20:46 | NUR ---
HS MEDICATIONS GIVEN TO INCLUDE MAG OX 400 MG PO PER THE ELECTOLYTE PROTOCOL.
--- NOTE | 2021-01-05 22:46 | NUR ---
ASSISTED UP TO USE RESTROOM. POSITIONED BACK IN MAIKOL BED FOR COMFORT.
[2021-01-06] VITALS: BP 123/64
[2021-01-06 04:00] VITALS: BP 145/72
[2021-01-06 07:35] LABS: BASOPHILS 1.4 % (0-2); EOSINOPHILS 12.6 % (0-7); HEMATOCRIT 32.1 % (36.0-48.0); HEMOGLOBIN 10.1 g/dL (12-16); LYMPHOCYTE ABS# 1.38 10x3/uL (1.18-3.74); LYMPHOCYTES 38.5 % (15-50); MCH 35.4 pg (26.0-34.0); MCHC 31.5 g/dL (31.0-37.0); MCV 112.6 fL (80.0-100.0); MEAN PLATELET VOLUME 11.6 fL (7.4-10.4); MONOCYTES 21.2 % (2-11); NEUTROPHIL ABS# 0.94 10x3/uL (1.56-6.13); NEUTROPHILS 26.3 % (40-80); PLATELET COUNT 56 10x3/uL (130-400); RBC 2.85 10x6/uL (4.00-5.40); RDW 15.5 % (11.5-14.5); WBC 3.6 10x3/uL (4.8-10.8)
[2021-01-06 07:42] LABS: ALBUMIN 2.1 g/dL (3.4-5.0); ALKALINE PHOSPHATASE 256 U/L (30-120); ALT (SGPT) 28 U/L (10-68); CALC OSMOLALITY 282 mosm/kg (275-300); CALCIUM 8.4 mg/dL (8.5-10.1); CARBON DIOXIDE 22.3 mmol/L (21.0-32.0); CHLORIDE - SERUM 110 mmol/L (98-107); CREATININE - SERUM 0.6 mg/dL (0.6-1.3); GLUCOSE 79 mg/dL (74-106); POTASSIUM - SERUM 3.2 mmol/L (3.5-5.1); PROTEIN - SERUM 6.4 g/dL (6.4-8.2); SODIUM 143 mmol/L (136-145); eGFR NON AFRICAN AMERICAN > 90 mL/min (90-120)
[2021-01-06 07:43] LABS: UREA NITROGEN 11 mg/dL (7-18)
--- NOTE | 2021-01-06 07:49 | NUR ---
RESTING IN BED WITH EYES OPEN, ALERT AND ORIENTED, MAIKOL BED PRESENT. IV LOCATED TO LEFT HAND CURRENTLY SL. NO CURRENT S/S OF DISTRESS AT THIS TIME, DENIES CURRENT NEEDS, WILL CONT TO MONITOR.
[2021-01-06 08:00] LABS: INR 2.14 (0.85-1.17); PROTIME 22.2 SECONDS (11.6-15.0)
[2021-01-06 09:37] VITALS: BP 141/80
[2021-01-06] MEDS ORDERED: NICODERM CQ1 EAC1 TRANSDERM (11:13)
[2021-01-06] MEDS ORDERED: ASPIRIN81 MG PO (11:13)
[2021-01-06] MEDS ORDERED: MULTI-DAY VITAM1 TAB PO (11:14)
[2021-01-06] MEDS ORDERED: MUPIROCIN22 GM NASAL (11:14)
[2021-01-06] MEDS ORDERED: TIAZAC/CARDIZEM CD PO (11:14)
[2021-01-06 12:04] VITALS: BP 148/88
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
--- NOTE | 2021-01-06 14:15 | NUR ---
DISCHARGE INSTRUCTIONS REVIEWED WITH PT AND SPOUSE. QUESTIONS ANSWERED. SALINE LOCK REMOVED. AWAITING RIDE HOME
--- NOTE | 2021-01-06 15:27 | NUR ---
OT NOTE: PT COMPLETED ADL MOB WITH SPV. PT COMPLETED TOILETING WITH SPV. PT COMPLETED HYGIENE WITH SPV. PT COMPLETED HAND HYGIENE WITH SPV AT SINK LEVEL. [phone] [place]
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
== END 2021-01-06 14:48 | disposition home health service (06) | DRG 808 ==
LOC: D.ER 19:04 → D.M2 22:08 → D.ICU 22:08 → D.EDHOLD 22:08 → D.M2 22:16 → D.ICU 12-30 06:04 → D.MS 12-31 15:42
PROVIDERS: Emergency Medicine; Family Medicine; Internal Medicine Hematology & Oncology; ADMIT Emergency Medicine; ATTEND Emergency Medicine
DX: D61.818 Other pancytopenia (principal); G93.41 Metabolic encephalopathy; I47.1 Supraventricular tachycardia; G45.9 Transient cerebral ischemic attack, unspecified; D53.9 Nutritional anemia, unspecified; E87.6 Hypokalemia; E83.42 Hypomagnesemia; K70.30 Alcoholic cirrhosis of liver without ascites; B19.20 Unspecified viral hepatitis C without hepatic coma; I10 Essential (primary) hypertension; V49.60XD Unspecified car occupant injured in collision with unspecified motor vehicles in traffic accident, subsequent encounter; Y90.8 Blood alcohol level of 240 mg/100 ml or more

== ENCOUNTER 2020-12-30 04:22 | Emergency (ER) | payer MEDICARE ==
[~2020-12-30] VITALS: Ht 165.1 cm; Wt 97.3 kg
[~2020-12-30 04:22] MED LIST changes: +LISINOPRIL10 MG PO
[2020-12-30 04:50] LABS: CALC OSMOLALITY 277 mosm/kg (275-300); CALCIUM 8.2 mg/dL (8.5-10.1); CHLORIDE - SERUM 103 mmol/L (98-107); CREATININE - SERUM 0.6 mg/dL (0.6-1.3); POTASSIUM - SERUM 3.4 mmol/L (3.5-5.1); SODIUM 140 mmol/L (136-145); UREA NITROGEN 5 mg/dL (7-18); eGFR NON AFRICAN AMERICAN > 90 mL/min (90-120)
[2020-12-30 04:51] LABS: INR 1.77 (0.85-1.17); PROTIME 19.2 SECONDS (11.6-15.0)
[2020-12-30 05:04] LABS: GLUCOSE 141 mg/dL (74-106)
[2020-12-30 05:08] VITALS: Ht 165.1 cm; Wt 97.3 kg
[2020-12-30 05:12] LABS: ALBUMIN 2.5 g/dL (3.4-5.0); ALKALINE PHOSPHATASE 271 U/L (30-120); ALT (SGPT) 19 U/L (10-68); BILIRUBIN - TOTAL 4.76 mg/dL (0.2-1.3); CKMB 1.3 U/L (0.0-3.6); CREATINE KINASE 128 UL (21-215); PROTEIN - SERUM 7.7 g/dL (6.4-8.2)
[2020-12-30 05:14] LABS: TROPONIN-I 0.152 ng/mL (0.000-0.060)
[2020-12-30 06:41] VITALS: BP 123/77
== END 2020-12-30 06:25 | disposition other institution (70) ==
LOC: D.ER 04:22
PROVIDERS: Family Medicine
DX: R41.82 Altered mental status, unspecified (principal); I47.1 Supraventricular tachycardia; I10 Essential (primary) hypertension; R53.1 Weakness

== ENCOUNTER 2021-01-22 11:47 | Emergency (ER) | payer MEDICARE ==
[~2021-01-22] VITALS: Ht 165.1 cm; Wt 81.8 kg
[~2021-01-22 11:47] MED LIST changes: +ASPIRIN81 MG PO; +MULTI-DAY VITAM1 TAB PO; +MUPIROCIN22 GM NASAL; +NICODERM CQ1 EAC1 TRANSDERM; +TIAZAC/CARDIZEM CD PO
[2021-01-22 11:54] VITALS: Ht 165.1 cm; Wt 81.8 kg
[2021-01-22 13:30] VITALS: BP 148/90
== END 2021-01-22 13:32 | disposition home or self-care (01) ==
LOC: D.ER 11:47
DX: S09.90XA Unspecified injury of head, initial encounter (principal); I10 Essential (primary) hypertension; W06.XXXA Fall from bed, initial encounter; Y93.9 Activity, unspecified; Y92.9 Unspecified place or not applicable

== ENCOUNTER 2021-02-04 18:53 | Inpatient (IN) | payer MEDICARE ==
[~2021-02-04] VITALS: Ht 165.1 cm; Wt 68.0 kg
[2021-02-04] MEDS ORDERED: TENORMIN25 MG PO (19:27)
[2021-02-04] MEDS ORDERED: GABAPENTIN300 MG PO (19:42)
--- NOTE | 2021-02-04 19:48 | NUR ---
PT WASTED URINE SAMPLE
[2021-02-04 19:59] LABS: HEMATOCRIT 33.1 % (36.0-48.0); HEMOGLOBIN 10.9 g/dL (12-16); LYMPHOCYTES 48.4 % (15-50); MCH 36.1 pg (26.0-34.0); MCHC 33.1 g/dL (31.0-37.0); MCV 109.3 fL (80.0-100.0); MONOCYTES 18.2 % (2-11); NEUTROPHILS 29.4 % (40-80); PLATELET COUNT 55 10x3/uL (130-400); RBC 3.02 10x6/uL (4.00-5.40); RDW 16.6 % (11.5-14.5)
[2021-02-04 20:07] LABS: CALC OSMOLALITY 280 mosm/kg (275-300); CALCIUM 8.2 mg/dL (8.5-10.1); CARBON DIOXIDE 25.2 mmol/L (21.0-32.0); CHLORIDE - SERUM 108 mmol/L (98-107); CREATININE - SERUM 0.7 mg/dL (0.6-1.3); GLUCOSE 97 mg/dL (74-106); POTASSIUM - SERUM 3.3 mmol/L (3.5-5.1); SODIUM 142 mmol/L (136-145); UREA NITROGEN 6 mg/dL (7-18); eGFR NON AFRICAN AMERICAN > 90 mL/min (90-120)
[2021-02-04 20:15] LABS: PLATELET ESTIMATE DECREASED
[2021-02-04 20:21] LABS: APTT 39.4 SECONDS (22.8-39.4); INR 1.68 (0.85-1.17); PROTIME 18.4 SECONDS (11.6-15.0)
[2021-02-04 20:28] LABS: ALBUMIN 2.1 g/dL (3.4-5.0); ALKALINE PHOSPHATASE 363 U/L (30-120); ALT (SGPT) 13 U/L (10-68); BILIRUBIN - TOTAL 2.54 mg/dL (0.2-1.3); C-REACTIVE PROTEIN 0.9 mg/dL (0.0-0.9); LIPASE 265 U/L (73-393); MAGNESIUM - SERUM 1.5 mg/dL (1.8-2.4); PRO BNP 37 pg/mL (0-125); PROTEIN - SERUM 7.4 g/dL (6.4-8.2); THYROID STIMULATING HORMONE 1.23 uIU/mL (0.36-3.74)
[2021-02-04 20:30] LABS: TROPONIN-I 0.099 ng/mL (0.000-0.060)
--- NOTE | 2021-02-04 20:35 | NUR ---
URINE TAKEN TO THE LAB
[2021-02-04 20:43] LABS: BILIRUBIN NEGATIVE (NEGATIVE); KETONE NEGATIVE (NEGATIVE); NITRITE NEGATIVE (NEGATIVE); UROBILINOGEN NORMAL mg/dL (< 2)
[2021-02-04 20:49] VITALS: BP 125/83
[2021-02-04 20:53] LABS: UDS - AMPHET NEGATIVE QUAL (NEGATIVE); UDS - BARB NEGATIVE QUAL (NEGATIVE); UDS - BENZO NEGATIVE QUAL (NEGATIVE); UDS - COCAINE NEGATIVE QUAL (NEGATIVE); UDS - OPIATE NEGATIVE QUAL (NEGATIVE); UDS - PCP NEGATIVE QUAL (NEGATIVE); UDS - THC NEGATIVE QUAL (NEGATIVE)
[2021-02-04 22:28] VITALS: BP 120/73
--- NOTE | 2021-02-04 22:31 | NUR ---
PT TO CT
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
[2021-02-05 00:14] VITALS: BMI 25.0
[2021-02-05 04:00] VITALS: BP 139/72
[2021-02-05 07:18] LABS: HEMATOCRIT 30.4 % (36.0-48.0); HEMOGLOBIN 10.3 g/dL (12-16); MCH 37.2 pg (26.0-34.0); MCHC 33.9 g/dL (31.0-37.0); MCV 109.7 fL (80.0-100.0); MEAN PLATELET VOLUME 8.6 fL (7.4-10.4); RBC 2.77 10x6/uL (4.00-5.40); RDW 16.1 % (11.5-14.5)
[2021-02-05 07:27] LABS: WBC 2.6 10x3/uL (4.8-10.8)
[2021-02-05 07:28] LABS: PLATELET COUNT 43 10x3/uL (130-400)
[2021-02-05 07:50] LABS: ALKALINE PHOSPHATASE 316 U/L (30-120); ALT (SGPT) 15 U/L (10-68); CALC OSMOLALITY 285 mosm/kg (275-300); CALCIUM 7.6 mg/dL (8.5-10.1); CARBON DIOXIDE 23.8 mmol/L (21.0-32.0); CHLORIDE - SERUM 111 mmol/L (98-107); CKMB 0.3 U/L (0.0-3.6); CREATINE KINASE 77 UL (21-215); CREATININE - SERUM 0.5 mg/dL (0.6-1.3); GLUCOSE 93 mg/dL (74-106); MAGNESIUM - SERUM 1.7 mg/dL (1.8-2.4); PHOSPHOROUS 3.3 mg/dL (2.5-4.9); POTASSIUM - SERUM 3.2 mmol/L (3.5-5.1); PROTEIN - SERUM 6.7 g/dL (6.4-8.2); SODIUM 145 mmol/L (136-145); TROPONIN-I 0.109 ng/mL (0.000-0.060); UREA NITROGEN 5 mg/dL (7-18); eGFR NON AFRICAN AMERICAN > 90 mL/min (90-120)
[2021-02-05 08:27] VITALS: BP 136/74
--- NOTE | 2021-02-05 09:00 | NUR ---
ALERT AND ORIENTED TO SELF WITH FALL PRECAUTIONS IN PLACE. TELEMETRY INTACT AND DENIES ANY CHEST PAIN OR DISCOMFORT. IV S/L TO RIGHT ARM WITH NO S/S OF INFECTION/INFILTRATION. ENCOURAGED TO USE CALL LIGHT FOR ASSSIT.ABDOMEN OBESE WITH PANNUS WITH ABDOMEN SOFT WITH BOWEL SOUNDS NOTED X4.
[2021-02-05 12:15] LABS: ANISOCYTOSIS OCC; EOSINOPHILS 3 % (0-7); LYMPHOCYTES 43 % (15-50); MONOCYTES 14 % (2-11); NEUTROPHILS 40 % (40-80); PLATELET ESTIMATE DECREASED; ROULEAUX OCC
[2021-02-05 12:16] LABS: SMUDGE CELLS OCC
[2021-02-05 14:29] LABS: INR 1.75 (0.85-1.17)
[2021-02-05 14:40] LABS: CKMB 0.2 U/L (0.0-3.6); CREATINE KINASE 62 UL (21-215); TROPONIN-I 0.103 ng/mL (0.000-0.060)
[2021-02-05 16:50] VITALS: BP 161/87
--- NOTE | 2021-02-05 18:40 | NUR ---
BLOOD CULTURE REPORT CALLED TO [facility] AND STATED WAS COVERED WITH CURRENT ABX REGIMEN.
[2021-02-05 19:08] LABS: CKMB 0.4 U/L (0.0-3.6); CREATINE KINASE 70 UL (21-215)
[2021-02-05 20:39] VITALS: BP 125/60
--- NOTE | 2021-02-05 23:42 | NUR ---
ASSESSED AT THE BEGINNING OF THE SHIFT. PT IS ALERT AND A LITTLE CONFUSED. SHE IS CALLING FOR ASSIST TO THE BATHROOM AND DOING WELL. HER TELEMETRY IS IN PLACE AND SHOWING SINUS RHYTHM IN THE 'S. ALL MEDS WERE TAKEN AND SHE HAS BEEN SLEEPING SINCE ABOUT 2129.
[2021-02-06 05:58] LABS: HEMATOCRIT 28.6 % (36.0-48.0); HEMOGLOBIN 9.7 g/dL (12-16); RBC 2.61 10x6/uL (4.00-5.40)
[2021-02-06 06:01] LABS: BASOPHILS 1.1 % (0-2); EOSINOPHILS 3.6 % (0-7); LYMPHOCYTES 41.3 % (15-50); MCH 37.1 pg (26.0-34.0); MCHC 33.8 g/dL (31.0-37.0); MCV 109.6 fL (80.0-100.0); MEAN PLATELET VOLUME 10.5 fL (7.4-10.4); MONOCYTES 18.8 % (2-11); NEUTROPHILS 35.2 % (40-80); PLATELET COUNT 50 10x3/uL (130-400); RDW 16.1 % (11.5-14.5); WBC 2.5 10x3/uL (4.8-10.8)
--- NOTE | 2021-02-06 06:11 | NUR ---
AROUND 0230 PT WAS AWAKE AND REQUESTING PAIN MEDS FOR HER BACK. SHE WAS RESTLESS AND COULD NOT GET TO SLEEP. SHE WAS GIVEN ATIVAN ORDERED AND SHE HAS BEEN RESTING QUIET SINCE THEN.
[2021-02-06 06:44] LABS: ALBUMIN 1.8 g/dL (3.4-5.0); ALKALINE PHOSPHATASE 204 U/L (30-120); BILIRUBIN - TOTAL 3.51 mg/dL (0.2-1.3); CALC OSMOLALITY 276 mosm/kg (275-300); CALCIUM 7.4 mg/dL (8.5-10.1); CARBON DIOXIDE 24.5 mmol/L (21.0-32.0); CHLORIDE - SERUM 107 mmol/L (98-107); CREATININE - SERUM 0.5 mg/dL (0.6-1.3); GLUCOSE 88 mg/dL (74-106); MAGNESIUM - SERUM 1.5 mg/dL (1.8-2.4); PHOSPHOROUS 2.5 mg/dL (2.5-4.9); PROTEIN - SERUM 6.4 g/dL (6.4-8.2); SODIUM 141 mmol/L (136-145); UREA NITROGEN 5 mg/dL (7-18); eGFR NON AFRICAN AMERICAN > 90 mL/min (90-120)
[2021-02-06 06:45] LABS: ALT (SGPT) 11 U/L (10-68)
[2021-02-06 06:46] LABS: POTASSIUM - SERUM 2.7 mmol/L (3.5-5.1)
[2021-02-06 08:48] VITALS: BP 155/97
[2021-02-06 10:06] LABS: INR 1.82 (0.85-1.17); PROTIME 19.6 SECONDS (11.6-15.0)
[2021-02-06 11:31] VITALS: Ht 165.1 cm; Wt 68.0 kg
[2021-02-06 11:56] VITALS: BP 163/97
[2021-02-06 12:56] VITALS: BP 163/97
[2021-02-06 16:54] VITALS: BP 148/87
[2021-02-06 20:00] VITALS: BP 126/78
--- NOTE | 2021-02-06 23:53 | NUR ---
ASSESSED AT THE BEGINNING OF THE SHIFT. PT IS ALERT AND MORE ORIENTED TODAY THAN SHE WAS YESTERDAY. WE ARE STILL ASSISTING HER UP TO THE BATHROOM WHEN SHE CALLS, BUT ONE TIME SHE WET THE BED WHICH WE CHANGED FOR HER. THERE WAS ALSO A URINE COLLECTED FOR A CULTURE. TELEMETRY IS SHOWING SR IN THE 90'S AND SHE HAS BEEN RESTARTED ON THE MVI IV FLUIDS AFTER ALL THE ELECTROLYTE REPLACEMENTS.
[2021-02-07 07:40] LABS: HEMATOCRIT 32.2 % (36.0-48.0); HEMOGLOBIN 10.5 g/dL (12-16); MCH 36.1 pg (26.0-34.0); MCHC 32.7 g/dL (31.0-37.0); MCV 110.4 fL (80.0-100.0); MEAN PLATELET VOLUME 9.3 fL (7.4-10.4); PLATELET COUNT 53 10x3/uL (130-400); RBC 2.91 10x6/uL (4.00-5.40); RDW 16.5 % (11.5-14.5); WBC 2.8 10x3/uL (4.8-10.8)
[2021-02-07 07:45] LABS: INR 1.77 (0.85-1.17); PROTIME 19.2 SECONDS (11.6-15.0)
[2021-02-07 07:47] LABS: ALBUMIN 2.1 g/dL (3.4-5.0); ALKALINE PHOSPHATASE 185 U/L (30-120); ALT (SGPT) 11 U/L (10-68); BILIRUBIN - TOTAL 3.71 mg/dL (0.2-1.3); CALCIUM 7.8 mg/dL (8.5-10.1); CARBON DIOXIDE 25.2 mmol/L (21.0-32.0); CHLORIDE - SERUM 109 mmol/L (98-107); CREATININE - SERUM 0.6 mg/dL (0.6-1.3); GLUCOSE 81 mg/dL (74-106); MAGNESIUM - SERUM 1.8 mg/dL (1.8-2.4); PROTEIN - SERUM 7.3 g/dL (6.4-8.2); SODIUM 142 mmol/L (136-145); eGFR NON AFRICAN AMERICAN > 90 mL/min (90-120)
[2021-02-07 07:51] LABS: CALC OSMOLALITY 278 mosm/kg (275-300); PHOSPHOROUS 3.4 mg/dL (2.5-4.9); POTASSIUM - SERUM 3.3 mmol/L (3.5-5.1); UREA NITROGEN 3 mg/dL (7-18)
[2021-02-07 09:04] VITALS: BP 149/81
[2021-02-07 09:11] LABS: HEPATITIS C ANTIBODY >11.0 S/CO RAT (0.0-0.9)
[2021-02-07 11:22] LABS: ANISOCYTOSIS OCC; EOSINOPHILS 8 % (0-7); LYMPHOCYTES 59 % (15-50); MONOCYTES 8 % (2-11); NEUTROPHILS 25 % (40-80); PLATELET ESTIMATE DECREASED; POLYCHROMASIA OCC
[2021-02-07 11:30] VITALS: BP 137/89
[2021-02-07 13:56] VITALS: BP 137/89
[2021-02-07 18:30] VITALS: BP 139/89
--- NOTE | 2021-02-07 19:19 | NUR ---
PATIENT RESTING IN BED WITH NO S/S OF DISTRESS AND DENIES NEEDS AT THIS TIME. BED IN LOWEST POSITION AND CALL LIGHT IN REACH. ENCOURAGED PATIENT TO CALL WITH NEEDS.
[2021-02-07 20:00] VITALS: BP 130/75
--- NOTE | 2021-02-07 21:49 | NUR ---
ADMINISTERED MEDS PER ORDERS. PATIENT SCOTT WELL. ENCOURAGED PATIENT TO CALL WITH NEEDS.
[2021-02-08 05:00] VITALS: BP 148/97
[2021-02-08 06:24] LABS: HEMATOCRIT 31.5 % (36.0-48.0); MCHC 33.5 g/dL (31.0-37.0); WBC 3.3 10x3/uL (4.8-10.8)
[2021-02-08 06:27] LABS: BASOPHILS 0.8 % (0-2); EOSINOPHILS 8.5 % (0-7); HEMOGLOBIN 10.5 g/dL (12-16); INR 1.93 (0.85-1.17); LYMPHOCYTES 36.4 % (15-50); MCH 36.8 pg (26.0-34.0); MCV 110.1 fL (80.0-100.0); MEAN PLATELET VOLUME 9.5 fL (7.4-10.4); NEUTROPHILS 39.3 % (40-80); PROTIME 20.4 SECONDS (11.6-15.0); RBC 2.86 10x6/uL (4.00-5.40); RDW 16.8 % (11.5-14.5)
[2021-02-08 06:33] LABS: PLATELET COUNT 52 10x3/uL (130-400)
[2021-02-08 06:40] LABS: ALKALINE PHOSPHATASE 237 U/L (30-120); ALT (SGPT) 15 U/L (10-68); CALC OSMOLALITY 276 mosm/kg (275-300); CALCIUM 7.9 mg/dL (8.5-10.1); CARBON DIOXIDE 25.2 mmol/L (21.0-32.0); CHLORIDE - SERUM 108 mmol/L (98-107); CREATININE - SERUM 0.7 mg/dL (0.6-1.3); GLUCOSE 124 mg/dL (74-106); MAGNESIUM - SERUM 1.6 mg/dL (1.8-2.4); PHOSPHOROUS 4.1 mg/dL (2.5-4.9); POTASSIUM - SERUM 3.6 mmol/L (3.5-5.1); PROTEIN - SERUM 6.8 g/dL (6.4-8.2); SODIUM 139 mmol/L (136-145); UREA NITROGEN 6 mg/dL (7-18); eGFR NON AFRICAN AMERICAN > 90 mL/min (90-120)
[2021-02-08] MEDS ORDERED: XIFAXAN550 MG PO (11:20)
[2021-02-08] MEDS ORDERED: CHRONULAC30 ML PO (11:20)
[2021-02-08] MEDS ORDERED: K-DUR20 MEQ PO (11:20)
[2021-02-08] MEDS ORDERED: TESSALON PERLE100 MG PO (11:21)
[2021-02-08] MEDS ORDERED: ALDACTONE25 MG PO (11:21)
[2021-02-08] MEDS ORDERED: FLORAJEN DIGES1 EACH PO (11:21)
[2021-02-08] MEDS ORDERED: MUCINEX600 MG PO (11:21)
[2021-02-08] MEDS ORDERED: ZYVOX600 MG PO (11:22)
[2021-02-08] MEDS ORDERED: PROTONIX40 MG PO (11:23)
[2021-02-08] MEDS ORDERED: LIBRIUM25 MG PO (11:23)
[2021-02-08 12:04] VITALS: BP 134/78
--- NOTE | 2021-02-08 13:55 | NUR ---
IV DISCONTINUED WELL TELEMETRY. VERBALIZED UNDERSTANDING OF DISCHARGE INSTRUCTIONS WITH PRESENT. STABLE AT TIME OF DISCHARGE
--- NOTE | 2021-02-08 17:18 | MORECARE ---
CASE MANAGEMENT DISCHARGE SUMMARY PATIENT: KAYLA ONTIVEROS UNIT: [id number] ADM DATE: 02/04/21 AGE: 55 : 65 SEX: F ROOM/BED: D2204 AUTHOR: CARLOS,DOC PHYSICIAN: REFERRING PHYSICIAN: CRISTHIAN OZUNA MD DATE OF SERVICE: 02/08/21 Case Management Discharge Planning Summary DCP REVIEW SUMMARY ANTICIPATED D/C DATE: 02/08/2021 EXPECTED LOS : 4 CASE STATUS: DCP Initiated INITIAL REVIEW: 02/04/2021 INITIAL REVIEWER: Perico Vera FINAL DISCHARGE DISPOSITION: : FINAL REVIEWER: FINAL REVIEW DATE: DCP Focus Questions & Answers QUESTION: ANSWER : PATIENT: KAYLA ONTIVEROS ENCOUNTER: [id number] MEDICAL RECORD#: [id number] ADMISSION DATE: 02/04/2021 DISCHARGE DATE: 02/08/2021 ATTENDING MD: CRISTHIAN CELESTIN : AGE: 55 MARITAL STATUS: S DC PLAN ID: [id number] FACILITY: [facility] PRINTED ON: 02/08/21 17:18 CT All edits/amendments must be made on the electronic document DICTATION DATE: 02/08/211717 TSO: DM 02/08/211717 RPT#: [id number] DC DATE:02/08/21 STATUS: DIS IN [facility] [address] [place] [address] END OF REPORT
--- NOTE | 2021-02-08 17:39 | MORECARE ---
CASE MANAGEMENT DISCHARGE SUMMARY PATIENT: KAYLA ONTIVEROS UNIT: [id number] ADM DATE: 02/04/21 AGE: 55 : 65 SEX: F ROOM/BED: D.2204 AUTHOR: PEPE GONZALEZ PHYSICIAN: REFERRING PHYSICIAN: CRISTHIAN OZUNA MD DATE OF SERVICE: 02/08/21 Case Management Discharge Planning Summary COMMENTS ENTERED DATE: 02/08/21 17:34 CT COMMENT TYPE: Discharge Planning REVIEWER: Perico Vera CM met with patient to complete DC plan and to evaluate needs. Patient stated that she was able to obtain her medications after last discharge but unfortunately was not able to keep her follow up appointments. Patient stated that she followed the dc instructions given to her. It appears that this readmission was due to risky behavior of alcohol use. Patient lives independently with her significant other, Karthikeyan Mark, . Patient stated that her home is safe and has electricity and running water. Patient stated that the home has 1 step to enter and she is able to manage the step without difficulty. Patient stated that she has no problems paying for medications and she fills her medications at [facility]. Patient stated that she does not have a primary care physician at this time but she will be followed by [facility] physicians. At discharge, the patient plans to return home and feels this is a safe discharge. CM discussed availability of home health, rehab services, and medical equipment. Patient declined SNF, IPR, and DME but stated that she is current with [facility] (Patient was somewhat vague on her recall of the home health agency). Patient stated that she has a cane and walker at home. [facility] for [facility] verbally signed and placed in chart per current isolation protocols. Patient voiced no other needs at this time and is satisfied with DC plan. Transportation provider at discharge will be with person. DC IMM delivered, explained, and verbally signed per isolation protocols and placed in chart. Copy of form also left with the patient. CM will continue to follow and will assist as needed with dc plans/needs DCP REVIEW SUMMARY ANTICIPATED D/C DATE: 02/08/2021 EXPECTED LOS : 4 CASE STATUS: DCP Initiated INITIAL REVIEW: 02/04/2021 INITIAL REVIEWER: Perico Vera FINAL DISCHARGE DISPOSITION: : FINAL REVIEWER: FINAL REVIEW DATE: DCP Focus Questions & Answers DCP Evaluation QUESTION: ANSWER Patient's current cognitive status: : *Oriented to person, place, situation, time and present Family / Caregiver's ability to cope with chronic illness: : a. Adequate (ability to meet patient's medical needs, ensures patient attends medical appts.) Patient and/or caregiver agree upon recommended discharge plan? : Yes Patient gives permission to discuss discharge plans with: (name, relationship and number) : significant other, Karthikeyan Mark, Patient's ability to cope with chronic illness : d. No chronic illness Functional screen assessment: : Basic needs can adequately be met by self Does the patient have the ability to pay for or attain post discharge needs / services? : Yes Physical Status: : Independent with ADL's Family / Caregiver's ability to cope with chronic illness: : a. Adequate (ability to meet patient's medical needs, ensures patient attends medical appts.) Is there a likelihood that the patient will require additional services to return to the preadmission environment? : No Equipment needed for post hospitalization: : None Living Arrangements: : Home with Spouse/Significant Other Patient with capacity for self-care or can be cared for in same environment as prior to hospitalization? : Yes Baseline cognitive status: : *Oriented to person, place, situation, time and present Physical environment modification needed / anticipated for discharge: : No Medication Management: : Patient states can afford medications Medication Management: : Patient states can read and understand medication labels Pharmacy name(s): : [facility] Does Patient have transportation to get home and to follow-up medical appointments when discharged from the hospital? : Yes Would patient like to participate in any Care Coordination programs (if applicable): : Not applicable Does the patient have electricity at home? : Yes Does the patient have running water in their house? : Yes Equipment in use: : Cane - Single Leg Equipment in use: : Walker - Rolling Mental health screen: : No mental health history DCP Re-evaluation QUESTION: ANSWER Would patient like to participate in any Care Coordination programs (if applicable): : Not applicable PATIENT: KAYLA ONTIVEROS ENCOUNTER: [id number] MEDICAL RECORD#: [id number] ADMISSION DATE: 02/04/2021 DISCHARGE DATE: 02/08/2021 ATTENDING MD: CRISTHIAN CELESTIN : AGE: 55 MARITAL STATUS: S DC PLAN ID: [id number] FACILITY: [facility] PRINTED ON: 02/08/21 17:39 CT All edits/amendments must be made on the electronic document DICTATION DATE: 02/08/211738 FIELD SPEC: ELIZABETH 02/08/211738 RPT#: [id number] DC DATE:02/08/21 STATUS: DIS IN [facility] [address] [place] [address] END OF REPORT
--- NOTE | 2021-02-10 10:43 | MORECARE ---
CASE MANAGEMENT DISCHARGE SUMMARY PATIENT: KAYLA ONTIVEROS UNIT: [id number] ADM DATE: 02/04/21 AGE: 55 : 65 SEX: F ROOM/BED: D.2204 AUTHOR: PEPE GONZALEZ PHYSICIAN: REFERRING PHYSICIAN: CRISTHIAN OZUNA MD DATE OF SERVICE: 02/10/21 Case Management Discharge Planning Summary COMMENTS ENTERED DATE: 02/08/21 17:34 CT COMMENT TYPE: Discharge Planning REVIEWER: Perico Vera CM met with patient to complete DC plan and to evaluate needs. Patient stated that she was able to obtain her medications after last discharge but unfortunately was not able to keep her follow up appointments. Patient stated that she followed the dc instructions given to her. It appears that this readmission was due to risky behavior of alcohol use. Patient lives independently with her significant other, Karthikeyan Mark, . Patient stated that her home is safe and has electricity and running water. Patient stated that the home has 1 step to enter and she is able to manage the step without difficulty. Patient stated that she has no problems paying for medications and she fills her medications at [facility]. Patient stated that she does not have a primary care physician at this time but she will be followed by [facility] physicians. At discharge, the patient plans to return home and feels this is a safe discharge. CM discussed availability of home health, rehab services, and medical equipment. Patient declined SNF, IPR, and DME but stated that she is current with [facility] (Patient was somewhat vague on her recall of the home health agency). Patient stated that she has a cane and walker at home. [facility] for [facility] verbally signed and placed in chart per current isolation protocols. Patient voiced no other needs at this time and is satisfied with DC plan. Transportation provider at discharge will be with person. DC IMM delivered, explained, and verbally signed per isolation protocols and placed in chart. Copy of form also left with the patient. CM will continue to follow and will assist as needed with dc plans/needs DCP REVIEW SUMMARY ANTICIPATED D/C DATE: 02/08/2021 EXPECTED LOS : 4 CASE STATUS: DCP Initiated INITIAL REVIEW: 02/04/2021 INITIAL REVIEWER: Perico Vera FINAL DISCHARGE DISPOSITION: : FINAL REVIEWER: FINAL REVIEW DATE: DCP Focus Questions & Answers DCP Evaluation QUESTION: ANSWER Patient's current cognitive status: : *Oriented to person, place, situation, time and present Family / Caregiver's ability to cope with chronic illness: : a. Adequate (ability to meet patient's medical needs, ensures patient attends medical appts.) Patient and/or caregiver agree upon recommended discharge plan? : Yes Patient gives permission to discuss discharge plans with: (name, relationship and number) : significant other, Karthikeyan Mark, Patient's ability to cope with chronic illness : d. No chronic illness Functional screen assessment: : Basic needs can adequately be met by self Does the patient have the ability to pay for or attain post discharge needs / services? : Yes Physical Status: : Independent with ADL's Family / Caregiver's ability to cope with chronic illness: : a. Adequate (ability to meet patient's medical needs, ensures patient attends medical appts.) Is there a likelihood that the patient will require additional services to return to the preadmission environment? : No Equipment needed for post hospitalization: : None Living Arrangements: : Home with Spouse/Significant Other Patient with capacity for self-care or can be cared for in same environment as prior to hospitalization? : Yes Baseline cognitive status: : *Oriented to person, place, situation, time and present Physical environment modification needed / anticipated for discharge: : No Medication Management: : Patient states can afford medications Medication Management: : Patient states can read and understand medication labels Pharmacy name(s): : [facility] Does Patient have transportation to get home and to follow-up medical appointments when discharged from the hospital? : Yes Would patient like to participate in any Care Coordination programs (if applicable): : Not applicable Does the patient have electricity at home? : Yes Does the patient have running water in their house? : Yes Equipment in use: : Cane - Single Leg Equipment in use: : Walker - Rolling Mental health screen: : No mental health history DCP Re-evaluation QUESTION: ANSWER Would patient like to participate in any Care Coordination programs (if applicable): : Not applicable PATIENT: KAYLA ONTIVEROS ENCOUNTER: [id number] MEDICAL RECORD#: [id number] ADMISSION DATE: 02/04/2021 DISCHARGE DATE: 02/08/2021 ATTENDING MD: CRISTHIAN CELESTIN : AGE: 55 MARITAL STATUS: S DC PLAN ID: [id number] FACILITY: [facility] PRINTED ON: 02/10/21 10:43 CT All edits/amendments must be made on the electronic document DICTATION DATE: 02/10/21 1043 APNS: ELIZABETH 02/10/21 1043 RPT#: [id number] DC DATE:02/08/21 STATUS: DIS IN [facility] [address] [place] [address] END OF REPORT
== END 2021-02-08 13:56 | disposition home health service (06) | DRG 442 ==
LOC: D.ER 18:53 → D.MS 22:47
PROVIDERS: Family Medicine; ADMIT Emergency Medicine; ATTEND Emergency Medicine
DX: K72.90 Hepatic failure, unspecified without coma (principal); E72.20 Disorder of urea cycle metabolism, unspecified; D61.818 Other pancytopenia; F10.129 Alcohol abuse with intoxication, unspecified; Y90.8 Blood alcohol level of 240 mg/100 ml or more; K70.30 Alcoholic cirrhosis of liver without ascites; I27.20 Pulmonary hypertension, unspecified; D17.79 Benign lipomatous neoplasm of other sites; K80.20 Calculus of gallbladder without cholecystitis without obstruction; M89.9 Disorder of bone, unspecified; E83.42 Hypomagnesemia; E87.6 Hypokalemia; D53.9 Nutritional anemia, unspecified; K57.90 Diverticulosis of intestine, part unspecified, without perforation or abscess without bleeding; I10 Essential (primary) hypertension; B19.20 Unspecified viral hepatitis C without hepatic coma; M51.36 Other intervertebral disc degeneration, lumbar region; I48.0 Paroxysmal atrial fibrillation